=== PATIENT | male | born 1985 | race American Indian/Alaskan Native ===

== ENCOUNTER 2019-05-03 10:02 | Inpatient (IN) | payer OTHER ==
[2019-05-03] MEDS ORDERED: ONDANSETRON 4 MG/2 ML INJ IV ONE (11:01)
[2019-05-03] MEDS ORDERED: PANTOPRAZOLE 40 MG INJ IV ONE (11:01)
[2019-05-03] MEDS ORDERED: MORPHINE 4 MG/1 ML INJ IV ONE (11:01)
[2019-05-03] MEDS ORDERED: SODIUM CHLORIDE 0.9% 1000 ML 1,000 ML IV ONE ×2 (11:01→14:49)
--- NOTE | 2019-05-03 11:05 | Emergency Department Report ---
ED Abdominal Pain HPI - General Chief Complaint: Abdominal Pain Stated Complaint: ABD PAIN Time Seen by Provider: 05/03/19 10:57 Source: patient Mode of arrival: Ambulatory Limitations: No Limitations - History of Present Illness Initial Comments: Patient is 34 years old male with no significant past medical history. Patient presented to the ER complaining of abdominal pain, nausea and vomiting for the last 2 days. Patient described his pain as sharp increase with movement and eating. Patient stated that he is unable to keep anything down for the last 2-3 days. Patient denied any fever or chills. No diarrhea. Patient labs reviewed and showed elevated lipase. Patient admitted to drinking alcohol recently. CT abdomen and pelvis showed acute pancreatitis. I discussed the patient is Dr. Garcia, he agreed to admit the patient to medical service for further management. MD Complaint: abdominal pain -: days(s) (3) Location: epigastric Radiation: none Migration to: no migration Severity scale (0 -10): 5 Quality: sharp - Related Data Allergies Allergy/AdvReac Type Severity Reaction Status Date / Time No Known Allergies Allergy Unverified 08/04/14 09:52 ED Review of Systems ROS: Stated complaint: ABD PAIN Other details as noted in HPI Comment: All other systems reviewed and negative Constitutional: denies: chills, fever Respiratory: denies: cough, shortness of breath Cardiovascular: denies: chest pain Gastrointestinal: abdominal pain, nausea, vomiting. denies: diarrhea, constipation, hematemesis, hematochezia Musculoskeletal: denies: back pain Neurological: denies: headache, weakness, numbness, paresthesias, confusion ED Past Medical Hx - Past Medical History Previous Medical History?: Yes Additional medical history: Abd pain - Surgical History Past Surgical History?: Yes Additional Surgical History: Oral surgery - Social History Smoking Status: Current Every Day Smoker Substance Use Type: Marijuana ED Physical Exam - General Limitations: No Limitations General appearance: alert, in no apparent distress - Head Head exam: Present: atraumatic, normocephalic, normal inspection - Eye Eye exam: Present: normal appearance - ENT ENT exam: Present: mucous membranes dry - Neck Neck exam: Present: normal inspection, full ROM. Absent: tenderness, meningismus, lymphadenopathy, thyromegaly - Respiratory Respiratory exam: Present: normal lung sounds bilaterally - Cardiovascular Cardiovascular Exam: Present: regular rate, normal rhythm, normal heart sounds - GI/Abdominal GI/Abdominal exam: Present: soft, tenderness (epigastric tenderness), normal bowel sounds. Absent: distended, guarding, rebound, rigid, organomegaly, mass, bruit, pulsatile mass, hernia - Extremities Exam Extremities exam: Present: normal inspection, full ROM, normal capillary refill. Absent: tenderness, pedal edema, calf tenderness - Back Exam Back exam: Present: normal inspection, full ROM. Absent: CVA tenderness (R), CVA tenderness (L), muscle spasm, paraspinal tenderness, vertebral tenderness - Neurological Exam Neurological exam: Present: alert, oriented X3, CN II-XII intact, normal gait - Psychiatric Psychiatric exam: Present: normal mood - Skin Skin exam: Present: warm, intact, normal color ED Course Vital Signs 05/03/19 05/03/19 05/03/19 10:06 11:15 11:25 Temperature 98.2 F Pulse Rate 67 Respiratory 16 19 19 Rate Blood Pressure 124/85 O2 Sat by Pulse 98 Oximetry 05/03/19 14:05 Temperature 98.1 F Pulse Rate 76 Respiratory 15 Rate Blood Pressure 130/92 O2 Sat by Pulse 98 Oximetry ED Medical Decision Making - Lab Data Result diagrams: 05/03/19 12:17 05/03/19 12:17 - Radiology Data Radiology results: report reviewed Referring Physician: REMI ALY Patient Name: GILBERT LANZA Date of : 1985 Sex: Male Report Date: 2019-05-03 Report Status: [place] [address] Cat Scan Report Signed Patient: GILBERT LANZA MR#: [id number] : 1985 Acct:[id number] Age/Sex: 34 / M ADM Date: 05/03/19 Loc: ED Attending Dr: Ordering Physician: REMI ALY Date of Service: 05/03/19 Procedure(s): CT abdomen pelvis w con Accession Number(s): [id number] cc: REMI ALY CT ABDOMEN AND PELVIS WITH CONTRAST INDICATION: Central abdominal pain for one week. COMPARISON: No relevant prior imaging study available. TECHNIQUE: Axial, coronal and sagittal CT imaging of the abdomen and pelvis was performed after injection of 100 mL Omnipaque [address] scans at this location are performed using CT dose reduction for ALARA by means of automated exposure control. FINDINGS: LOWER CHEST: No significant abnormality. LIVER: A tiny cyst is seen anteriorly along the lateral segment of the left hepatic lobe. No additional significant abnormality is seen. BILIARY: No significant abnormality. PANCREAS: The pancreatic head and uncinate process are edematous. There is generalized peripancreatic edema. No other significant abnormality is seen. SPLEEN: No significant abnormality. ADRENALS: No significant abnormality. KIDNEYS AND URETERS: No significant abnormality. GI TRACT: No significant abnormality of the stomach is seen. There is mild thick ening of the proximal duodenum, likely due to the above described pancreatic inflammatory process. No other significant abnormality of the small bowel is seen. Significant abnormality is seen along the colon. The appendix is unremarkable. PERITONEUM: Inflammation tracks along the mesentery and the right paracolic gutter. There is a small amount of free fluid along the pelvis. No free air or fluid collection is seen. LYMPH NODES: No significant adenopathy. VASCULATURE: No significant abnormality. URINARY BLADDER: No significant abnormality. REPRODUCTIVE ORGANS: No significant abnormality. ADDITIONAL FINDINGS: None. SKELETAL SYSTEM: No significant abnormality. IMPRESSION: 1. Uncomplicated acute pancreatitis. 2. Additional findings as above. Signer Name: Basil Zhu MD Signed: 05/03/2019 2:14 PM Workstation Name: [id number] Transcribed By: JOSLYN Dictated By: Basil Zhu MD Electronically Authenticated By: Basil Zhu MD Signed Date/Time: 05/03/19 1414 DD/ 09 TD/TT: Critical care attestation.: If time is entered above; I have spent that time in minutes in the direct care of this critically ill patient, excluding procedure time. ED Disposition Clinical Impression: Abdominal pain, Acute pancreatitis Disposition: OP ADMIT IP TO THIS HOSP Is pt being admited?: Yes Condition: Stable
[2019-05-03 12:22] LABS: Basophils % (Auto) 0.2 % (0.0-1.8); Eosinophils # (Auto) 0.1 K/mm3 (0.0-0.4); Eosinophils % (Auto) 1.1 % (0.0-4.3); Hemoglobin 14.5 gm/dl (11.8-15.2); Lymphocytes # (Auto) 0.9 K/mm3 (1.2-5.4); Lymphocytes % (Auto) 10.6 % (13.4-35.0); Mean Corpuscular HGB Conc 33 % (32-34); Mean Corpuscular Volume 91 fl (84-94); Monocytes # (Auto) 0.8 K/mm3 (0.0-0.8); Monocytes % (Auto) 8.6 % (0.0-7.3); Platelet Count 185 K/mm3 (140-440); Red Blood Count 4.83 M/mm3 (3.65-5.03)
[2019-05-03 12:45] LABS: Alanine Aminotransferase 28 units/L (7-56); Albumin 4.4 g/dL (3.9-5); BUN/Creatinine Ratio 8; Bilirubin,Direct 0.3 mg/dL (0-0.2); Blood Urea Nitrogen 6 mg/dL (9-20); Calcium 9.8 mg/dL (8.4-10.2); Hemolysis Index 25
[2019-05-03 13:05] LABS: Bilirubin,Urine NEG (Negative); Blood,Urine NEG (Negative); Color,Urine Straw (Yellow); Protein,Urine <15 mg/dL mg/dL (Negative); Urobilinogen,Urine < 2.0 mg/dL (<2.0)
[2019-05-03] MEDS ORDERED: MORPHINE 2 MG/1 ML INJ IV ONE (13:38)
--- NOTE | 2019-05-03 14:19 | Cat Scan Report ---
CT ABDOMEN AND PELVIS WITH CONTRAST INDICATION: Central abdominal pain for one week. COMPARISON: No relevant prior imaging study available. TECHNIQUE: Axial, coronal and sagittal CT imaging of the abdomen and pelvis was performed after inje ction of 100 mL Omnipaque [address] scans at this location are performed using CT dose re duction for ALARA by means of automated exposure control. FINDINGS: LOWER CHEST: No significant abnormality. LIVER: A tiny cyst is seen anteriorly along the lateral segment of the left hepatic lobe. No addition al significant abnormality is seen. BILIARY: No significant abnormality. PANCREAS: The pancreatic head and uncinate process are edematous. There is generalized peripancreatic edema. No other significant abnormality is seen. SPLEEN: No significant abnormality. ADRENALS: No significant abnormality. KIDNEYS AND URETERS: No significant abnormality. GI TRACT: No significant abnormality of the stomach is seen. There is mild thickening of the proximal duodenum, likely due to the above described pancreatic inflammatory process. No other significant ab normality of the small bowel is seen. Significant abnormality is seen along the colon. The appendix i s unremarkable. PERITONEUM: Inflammation tracks along the mesentery and the right paracolic gutter. There is a small amount of free fluid along the pelvis. No free air or fluid collection is seen. LYMPH NODES: No significant adenopathy. VASCULATURE: No significant abnormality. URINARY BLADDER: No significant abnormality. REPRODUCTIVE ORGANS: No significant abnormality. ADDITIONAL FINDINGS: None. SKELETAL SYSTEM: No significant abnormality. IMPRESSION: 1. Uncomplicated acute pancreatitis. 2. Additional findings as above. Signer Name: Basil Zhu MD Signed: 05/03/2019 2:14 PM Workstation Name: [id number]
--- NOTE | 2019-05-03 17:02 | History and Physical Report ---
History of Present Illness Date of examination: 05/03/19 Date of admission: 05/03/19 14:38 Chief complaint: Abd pain 2 days History of present illness: Patient is 34 years old male with no significant past medical history. Patient presented to the ER complaining of abdominal pain, nausea and vomiting for the last 2 days. Patient described his pain as sharp increase with movement and eating. Patient stated that he is unable to keep anything down for the last 2-3 days. Patient denied any fever or chills. No diarrhea. Patient labs reviewed and showed elevated lipase. Patient admitted to drinking alcohol recently. Past Medical History Previous Medical History?: Yes Additional medical history: Abd pain Surgical History Past Surgical History?: Yes Additional Surgical History: Oral surgery Social History Smoking Status: Current Every Day Smoker Substance Use Type: Marijuana Review of Systems ROS: Stated complaint: ABD PAIN Other details as noted in HPI Comment: All other systems reviewed and negative Constitutional: denies: chills, fever Respiratory: denies: cough, shortness of breath Cardiovascular: denies: chest pain Gastrointestinal: abdominal pain, nausea, vomiting. denies: diarrhea, constipation, hematemesis, hematochezia Musculoskeletal: denies: back pain Neurological: denies: headache, weakness, numbness, paresthesias, confusion Medications and Allergies Allergies Allergy/AdvReac Type Severity Reaction Status Date / Time No Known Allergies Allergy Unverified 08/04/14 09:52 Home Medications Medication Instructions Recorded Confirmed Last Taken Type No Known Home Medications [No 05/03/19 05/03/19 Unknown History Reported Home Medications] Active Meds: Active Medications Sodium Chloride (Nacl 0.9% 1000 Ml) 1,000 mls @ 250 mls/hr IV ONCE ONE Stop: 05/03/19 18:48 Last Admin: 05/03/19 15:09 Dose: 250 mls/hr Documented by: Exam - Constitutional Vitals: Temp Pulse Resp BP Pulse Ox 98.4 F 74 12 130/80 98 05/03/19 16:42 05/03/19 16:42 05/03/19 16:42 05/03/19 16:42 05/03/19 16:42 General appearance: Present: no acute distress, well-nourished - EENT Eyes: Present: PERRL ENT: hearing intact, clear oral mucosa - Neck Neck: Present: supple, normal ROM - Respiratory Respiratory effort: normal Respiratory: bilateral: CTA - Cardiovascular Heart rate: 78 Rhythm: regular Heart Sounds: Present: S1 & S2. Absent: rub, click - Extremities Extremities: no ischemia, pulses intact, pulses symmetrical, No edema Peripheral Pulses: within normal limits - Abdominal General gastrointestinal: Present: soft, tender, non-distended, normal bowel sounds Localized gastrointestinal: tender: diffuse, epigastric periumbilical Male genitourinary: Present: normal - Integumentary Integumentary: Present: clear, warm, dry - Musculoskeletal Musculoskeletal: gait normal, strength equal bilaterally - Psychiatric Psychiatric: appropriate mood/affect, intact judgment & insight - Neurologic Neurologic: CNII-XII intact, moves all extremities - Allied Health Allied health notes reviewed: nursing, case management Results - Labs CBC & Chem 7: 05/04/19 04:34 05/04/19 04:34 Labs: Laboratory Last Values WBC 8.7 K/mm3 (4.5-11.0) 05/03/19 12:17 RBC 4.83 M/mm3 (3.65-5.03) 05/03/19 12:17 Hgb 14.5 gm/dl (11.8-15.2) 05/03/19 12:17 Hct 44.0 % (35.5-45.6) 05/03/19 12:17 MCV 91 fl (84-94) 05/03/19 12:17 MCH 30 pg (28-32) 05/03/19 12:17 MCHC 33 % (32-34) 05/03/19 12:17 RDW 13.0 % (13.2-15.2) L 05/03/19 12:17 Plt Count 185 K/mm3 (140-440) 05/03/19 12:17 Lymph % (Auto) 10.6 % (13.4-35.0) L 05/03/19 12:17 [place] % (Auto) 8.6 % (0.0-7.3) H 05/03/19 12:17 Eos % (Auto) 1.1 % (0.0-4.3) 05/03/19 12:17 Baso % (Auto) 0.2 % (0.0-1.8) 05/03/19 12:17 Lymph # 0.9 K/mm3 (1.2-5.4) L 05/03/19 12:17 [place] # 0.8 K/mm3 (0.0-0.8) 05/03/19 12:17 Eos # 0.1 K/mm3 (0.0-0.4) 05/03/19 12:17 Baso # 0.0 K/mm3 (0.0-0.1) 05/03/19 12:17 Seg Neutrophils % 79.5 % (40.0-70.0) H 05/03/19 12:17 Seg Neutrophils # 6.9 K/mm3 (1.8-7.7) 05/03/19 12:17 Sodium 134 mmol/L (137-145) L 05/03/19 12:17 Potassium 3.3 mmol/L (3.6-5.0) L 05/03/19 12:17 Chloride 95.6 mmol/L (98-107) L 05/03/19 12:17 Carbon Dioxide 18 mmol/L (22-30) L 05/03/19 12:17 Anion Gap 24 mmol/L 05/03/19 12:17 BUN 6 mg/dL (9-20) L 05/03/19 12:17 Creatinine 0.8 mg/dL (0.8-1.5) 05/03/19 12:17 Estimated GFR > 60 ml/min 05/03/19 12:17 BUN/Creatinine Ratio 8 % 05/03/19 12:17 Glucose 90 mg/dL (75-100) 05/03/19 12:17 Calcium 9.8 mg/dL (8.4-10.2) 05/03/19 12:17 Total Bilirubin 1.30 mg/dL (0.1-1.2) H 05/03/19 12:17 Direct Bilirubin 0.3 mg/dL (0-0.2) H 05/03/19 12:17 Indirect Bilirubin 1.0 mg/dL 05/03/19 12:17 AST 34 units/L (5-40) 05/03/19 12:17 ALT 28 units/L (7-56) 05/03/19 12:17 Alkaline Phosphatase 76 units/L (35-129) 05/03/19 12:17 Total Protein 7.8 g/dL (6.3-8.2) 05/03/19 12:17 Albumin 4.4 g/dL (3.9-5) 05/03/19 12:17 Albumin/Globulin Ratio 1.3 % 05/03/19 12:17 Amylase 443 units/L (27-131) H 05/03/19 12:17 Lipase 825 units/L (13-60) H 05/03/19 12:17 Urine Color Straw (Yellow) 05/03/19 12:21 Urine Turbidity Clear (Clear) 05/03/19 12:21 Urine pH 7.0 (5.0-7.0) 05/03/19 12:21 Ur Specific [place] 1.005 (1.003-1.030) 05/03/19 12:21 Urine Protein <15 mg/dl mg/dL (Negative) 05/03/19 12:21 Urine Glucose (UA) Neg mg/dL (Negative) 05/03/19 12:21 Urine Ketones 20 mg/dL (Negative) 05/03/19 12:21 Urine Blood Neg (Negative) 05/03/19 12:21 Urine Nitrite Neg (Negative) 05/03/19 12:21 Urine Bilirubin Neg (Negative) 05/03/19 12:21 Urine Urobilinogen < 2.0 mg/dL (<2.0) 05/03/19 12:21 Ur Leukocyte Esterase Sm (Negative) 05/03/19 12:21 Urine WBC (Auto) 2.0 /HPF (0.0-6.0) 05/03/19 12:21 Urine RBC (Auto) 1.0 /HPF (0.0-6.0) 05/03/19 12:21 - Imaging and Cardiology CT scan - abdomen: report reviewed (Acute pancreatitis) Assessment and Plan Advance Directives: Yes (Full code) VTE prophylaxis?: Chemical Plan of care discussed with patient/family: Yes - Patient Problems (1) Acute pancreatitis Current Visit: Yes Status: Acute Qualifiers: Pancreatitis type: alcohol induced Plan to address problem: Keep NPO IV Fluids Pain Management (2) EtOH dependence Current Visit: Yes Status: Chronic Qualifiers: Substance use status: uncomplicated Qualified Code(s): F10.20 - Alcohol dependence, uncomplicated Plan to address problem: CIWA protocol (3) Hypokalemia Current Visit: Yes Status: Acute Plan to address problem: Supplemented (4) DVT prophylaxis Current Visit: Yes Status: Acute Plan to address problem: On Heparin
[2019-05-03] MEDS ORDERED: ACETAMINOPHEN 325 MG TAB PO PRN (17:05)
[2019-05-03] MEDS ORDERED: METOCLOPRAMIDE 10 MG/2 ML INJ IV PRN (17:05)
[2019-05-03] MEDS: HYDROmorphone 1 MG/1 ML INJ IV PRN ×4 (17:20→23:45)
[2019-05-03] MEDS: D5W/0.9% NACL 1,000 ML IV SCH (18:52)
[2019-05-03] MEDS: POTASSIUM CHLORIDE 10 MEQ 10 MEQ/100 ML BAG IV SCH ×4 (20:10→23:47)
[2019-05-03] MEDS: FAMOTIDINE 20 MG/2 ML INJ IV SCH (21:27)
[2019-05-04] MEDS: HYDROmorphone 1 MG/1 ML INJ IV PRN ×4 (04:42→17:59)
[2019-05-04 05:06] LABS: Basophils % (Auto) 0.1 % (0.0-1.8); Eosinophils % (Auto) 0.5 % (0.0-4.3); Hematocrit 40.6 % (35.5-45.6); Hemoglobin 13.3 gm/dl (11.8-15.2); Lymphocytes # (Auto) 0.4 K/mm3 (1.2-5.4); Lymphocytes % (Auto) 5.5 % (13.4-35.0); Mean Corpuscular HGB Conc 33 % (32-34); Mean Corpuscular Volume 92 fl (84-94); Monocytes # (Auto) 0.5 K/mm3 (0.0-0.8); Monocytes % (Auto) 7.4 % (0.0-7.3); Platelet Count 170 K/mm3 (140-440); Red Cell Distribution Width 13.3 % (13.2-15.2)
[2019-05-04 05:37] LABS: Alanine Aminotransferase 21 units/L (7-56); Albumin 3.8 g/dL (3.9-5); BUN/Creatinine Ratio 6; Blood Urea Nitrogen 5 mg/dL (9-20); Calcium 9.1 mg/dL (8.4-10.2); Hemolysis Index 2
[2019-05-04] MEDS ORDERED: chlordiazePOXIDE 25 MG CAP PO PRN (07:37)
[2019-05-04] MEDS ORDERED: LORazepam 2 MG/ML VIAL IV PRN ×2 (07:37)
[2019-05-04] MEDS: D5W/0.9% NACL 1,000 ML IV SCH ×4 (08:46→21:45)
[2019-05-04] MEDS: FAMOTIDINE 20 MG/2 ML INJ IV SCH ×2 (12:02→21:41)
--- NOTE | 2019-05-04 14:23 | Progress Note ---
Assessment and Plan / Acute pancreatitis start clear liquid cont IV Fluids, trend lipase Pain Management / EtOH dependence CIWA protocol initiated, counselled for cessation / Hypokalemia, Supplemented /DVT prophylaxis On Heparin Subjective Date of service: 05/04/19 Interval history: Pt seen and examined c/o abdominal pain, N/V - but better today Objective - Constitutional General appearance: Present: mild distress - EENT Eyes: PERRL, EOM intact ENT: hearing intact, clear oral mucosa Ears: bilateral: normal - Neck Neck: supple, normal ROM - Respiratory Respiratory effort: normal Respiratory: bilateral: CTA - Cardiovascular Rhythm: regular Heart Sounds: Present: S1 & S2. Absent: gallop, rub Extremities: pulses intact, No edema, normal color, Full ROM - Gastrointestinal General gastrointestinal: Present: soft, tender (epigastric), non-distended, normal bowel sounds - Integumentary Integumentary: clear, warm, dry - Musculoskeletal Musculoskeletal: 1, strength equal bilaterally - Neurologic Neurologic: moves all extremities - Psychiatric Psychiatric: memory intact, appropriate mood/affect, intact judgment & insight - Labs CBC & Chem 7: 05/04/19 04:34 05/04/19 04:34 Labs: Abnormal lab results 05/04/19 05/04/19 05/04/19 Range/Units 04:34 04:34 04:34 Lymph % (Auto) 5.5 L (13.4-35.0) % [place] % (Auto) 7.4 H (0.0-7.3) % Lymph # 0.4 L (1.2-5.4) K/mm3 Seg Neutrophils % 86.5 H (40.0-70.0) % BUN 5 L (9-20) mg/dL Glucose 114 H (75-100) mg/dL Albumin 3.8 L (3.9-5) g/dL Lipase 1787 H (13-60) units/L - Imaging and cardiology CT scan - abdomen: report reviewed (uncomplicated acute appendicitis)
[2019-05-05] MEDS: HYDROmorphone 1 MG/1 ML INJ IV PRN ×5 (01:58→18:11)
[2019-05-05] MEDS: D5W/0.9% NACL 1,000 ML IV SCH ×3 (05:48→21:14)
[2019-05-05] MEDS: FAMOTIDINE 20 MG/2 ML INJ IV SCH ×2 (09:07→22:10)
--- NOTE | 2019-05-05 12:28 | Progress Note ---
Assessment and Plan Assessment and plan: Acute pancreatitis Was on clear liquid, will advance to full liquid diet since lipase improved, less abd pain cont IV Fluids, trend lipase Pain Management EtOH dependence CIWA protocol initiated, counselled for cessation Hypokalemia, Supplemented DVT prophylaxis On Heparin Full code status History Interval history: Less abdominal pain Tolerating clear liquid diet Hospitalist Physical - Physical exam Narrative exam: Gen: Not in acute distress, lying in bed HEENT: Normocephalic, atraumatic Neck: supple, no JVD Heart: S1 and S2 reg, no murmurs, rubs or gallop Lungs: Clear to auscultation bilaterally, Abd: soft, mild tender, no rebound tenderness, non distended, normal BS, Ext: No edema, no clubbing, no cyanosis Neuro: Awake, alert, oriented X 3, - Constitutional Vitals: Temp Pulse Resp BP Pulse Ox 98.4 F 91 H 17 113/80 96 05/05/19 06:04 05/05/19 06:04 05/05/19 06:04 05/05/19 06:04 05/05/19 06:04 General appearance: Present: mild distress Results - Labs CBC & Chem 7: 05/04/19 04:34 05/04/19 04:34 Labs: Laboratory Last Values WBC 6.9 K/mm3 (4.5-11.0) 05/04/19 04:34 RBC 4.40 M/mm3 (3.65-5.03) 05/04/19 04:34 Hgb 13.3 gm/dl (11.8-15.2) 05/04/19 04:34 Hct 40.6 % (35.5-45.6) 05/04/19 04:34 MCV 92 fl (84-94) 05/04/19 04:34 MCH 30 pg (28-32) 05/04/19 04:34 MCHC 33 % (32-34) 05/04/19 04:34 RDW 13.3 % (13.2-15.2) 05/04/19 04:34 Plt Count 170 K/mm3 (140-440) 05/04/19 04:34 Lymph % (Auto) 5.5 % (13.4-35.0) L 05/04/19 04:34 [place] % (Auto) 7.4 % (0.0-7.3) H 05/04/19 04:34 Eos % (Auto) 0.5 % (0.0-4.3) 05/04/19 04:34 Baso % (Auto) 0.1 % (0.0-1.8) 05/04/19 04:34 Lymph # 0.4 K/mm3 (1.2-5.4) L 05/04/19 04:34 [place] # 0.5 K/mm3 (0.0-0.8) 05/04/19 04:34 Eos # 0.0 K/mm3 (0.0-0.4) 05/04/19 04:34 Baso # 0.0 K/mm3 (0.0-0.1) 05/04/19 04:34 Seg Neutrophils % 86.5 % (40.0-70.0) H 05/04/19 04:34 Seg Neutrophils # 6.0 K/mm3 (1.8-7.7) 05/04/19 04:34 Sodium 140 mmol/L (137-145) 05/04/19 04:34 Potassium 3.9 mmol/L (3.6-5.0) 05/04/19 04:34 Chloride 103.6 mmol/L (98-107) 05/04/19 04:34 Carbon Dioxide 23 mmol/L (22-30) 05/04/19 04:34 Anion Gap 17 mmol/L 05/04/19 04:34 BUN 5 mg/dL (9-20) L 05/04/19 04:34 Creatinine 0.9 mg/dL (0.8-1.5) 05/04/19 04:34 Estimated GFR > 60 ml/min 05/04/19 04:34 BUN/Creatinine Ratio 6 % 05/04/19 04:34 Glucose 114 mg/dL (75-100) H 05/04/19 04:34 Hemoglobin A1c 4.7 % (4-6) 05/03/19 12:17 Calcium 9.1 mg/dL (8.4-10.2) 05/04/19 04:34 Total Bilirubin 0.90 mg/dL (0.1-1.2) 05/04/19 04:34 Direct Bilirubin 0.3 mg/dL (0-0.2) H 05/03/19 12:17 Indirect Bilirubin 1.0 mg/dL 05/03/19 12:17 AST 23 units/L (5-40) 05/04/19 04:34 ALT 21 units/L (7-56) 05/04/19 04:34 Alkaline Phosphatase 59 units/L (35-129) 05/04/19 04:34 Total Protein 6.9 g/dL (6.3-8.2) 05/04/19 04:34 Albumin 3.8 g/dL (3.9-5) L 05/04/19 04:34 Albumin/Globulin Ratio 1.2 % 05/04/19 04:34 Amylase 443 units/L (27-131) H 05/03/19 12:17 Lipase 695 units/L (13-60) H 05/05/19 07:06 Urine Color Straw (Yellow) 05/03/19 12:21 Urine Turbidity Clear (Clear) 05/03/19 12:21 Urine pH 7.0 (5.0-7.0) 05/03/19 12:21 Ur Specific [place] 1.005 (1.003-1.030) 05/03/19 12:21 Urine Protein <15 mg/dl mg/dL (Negative) 05/03/19 12:21 Urine Glucose (UA) Neg mg/dL (Negative) 05/03/19 12:21 Urine Ketones 20 mg/dL (Negative) 05/03/19 12:21 Urine Blood Neg (Negative) 05/03/19 12:21 Urine Nitrite Neg (Negative) 05/03/19 12:21 Urine Bilirubin Neg (Negative) 05/03/19 12:21 Urine Urobilinogen < 2.0 mg/dL (<2.0) 05/03/19 12:21 Ur Leukocyte Esterase Sm (Negative) 05/03/19 12:21 Urine WBC (Auto) 2.0 /HPF (0.0-6.0) 05/03/19 12:21 Urine RBC (Auto) 1.0 /HPF (0.0-6.0) 05/03/19 12:21 Active Medications - Current Medications Current Medications: Generic Name Dose Route Start Last Admin Trade Name Freq PRN Reason Stop Dose Admin Acetaminophen 650 mg 05/03/19 17:05 Tylenol PO Q4H PRN Pain MILD(1-3)/Fever >100.5/CHAUDHRY Chlordiazepoxide HCl 50 mg 05/04/19 07:37 Librium PO Q1H PRN CIWA-Ar 8-15 Famotidine 20 mg 05/03/19 22:00 05/05/19 09:07 Pepcid IV 20 mg BID KARAN Administration Hydromorphone HCl 1 mg 05/03/19 17:05 05/05/19 09:03 Dilaudid IV 1 mg Q2H PRN Administration Pain , Severe (7-10) Dextrose/Sodium Chloride 1,000 mls @ 125 mls/hr 05/03/19 18:00 05/05/19 05:48 D5ns IV 100 mls/hr DIRECT KARAN Administration Lorazepam 2 mg 05/04/19 07:37 Ativan IV Q1H PRN CIWA-Ar 8-15 Lorazepam 4 mg 05/04/19 07:37 Ativan IV Q1H PRN CIWA-Ar 16-25 Metoclopramide HCl 10 mg 05/03/19 17:05 Reglan IV Q6H PRN Nausea And Vomiting Ondansetron HCl 4 mg 05/03/19 17:05 Zofran IV Q3H PRN Nausea And Vomiting Sodium Chloride 10 ml 05/03/19 22:00 05/05/19 09:15 Sodium Chloride Flush Syringe 10 Ml IV 10 ml BID KARAN Administration Sodium Chloride 10 ml 05/03/19 17:05 Sodium Chloride Flush Syringe 10 Ml IV PRN PRN LINE FLUSH
[2019-05-05] MEDS: ONDANSETRON 4 MG/2 ML INJ IV PRN ×2 (12:47→20:01)
--- NOTE | 2019-05-06 02:22 | Cat Scan Report ---
Examination: CT of the head without contrast Clinical information: Altered mental status. Comparison: None Technical: Multiple axial CT images of the head were obtained without intravenous contrast. Sagittal and coronal reformats were obtained. All CTs at this facility utilize dose reduction techniques inc luding automated exposure control, iterative reconstruction and weight based dosing when appropriate to reduce patient radiation dose to as low as reasonable achievable. Findings: There is no CT evidence of acute intracranial hemorrhage or large territorial infarct. The ventricular system is normal in size. There are no extra-axial fluid collections. Evaluation of the calvarium demonstrates no evidence of acute bony abnormality. The paranasal sinuses and mastoid air cells are clear. Impression: 1. No CT evidence of acute intracranial process. Signer Name: Stacie Villafana MD Signed: 05/06/2019 2:17 AM Workstation Name: [id number]
[2019-05-06] MEDS: D5W/0.9% NACL 1,000 ML IV SCH (05:29)
[2019-05-06] MEDS: FAMOTIDINE 20 MG/2 ML INJ IV SCH (10:16)
--- NOTE | 2019-05-06 15:33 | Discharge Summary ---
Providers - Providers Date of Admission: 05/03/19 14:38 Date of discharge: 05/06/19 Attending physician: RADHA CHOE 05/03/19 Consult to Case Management [CONS] Routine Services Needed at Discharge: Other Notified:: copy left for CM Primary care physician: ROLL FORMER Hospitalization Condition: Fair Hospital course: Patient is 34 years old male with no significant past medical history. Patient presented to the ER complaining of abdominal pain, nausea and vomiting for 2 days. Patient described his pain as sharp increase with movement and eating. Patient stated that he is unable to keep anything down for the last 2-3 days. Patient denied any fever or chills. No diarrhea. Patient labs reviewed and showed elevated lipase. Patient admitted to drinking alcohol recently. Acute pancreatitis: Was on clear liquid, advanced to full liquid diet, then soft diet, which he tolerated. Also managed with IV Fluids, narcotics for pain Management Alcohol dependence,CIWA protocol initiated, counselled for cessation Hypokalemia, Supplemented DVT prophylaxis He improved and was discharged home after 3 days on 05/06 Total time spent on discharge, 32 mins Disposition: DC-01 TO HOME OR SELFCARE - Discharge Diagnoses (1) Alcohol dependence Status: Acute (2) Acute pancreatitis Status: Acute Qualifiers: Pancreatitis type: alcohol induced (3) Hypokalemia Status: Acute Core Measure Documentation - Palliative Care Palliative Care/ Comfort Measures: Not Applicable - Core Measures Any of the following diagnoses?: none Exam - Constitutional Vitals: Temp Pulse Resp BP Pulse Ox 98.5 F 100 H 18 122/80 99 05/06/19 11:34 05/06/19 11:34 05/06/19 11:34 05/06/19 11:34 05/06/19 11:34 Plan Activity: no restrictions Diet: regular Plan of Treatment: 1.Follow up with PCP or [facility] in 1 week. 2.Avoid alcohol Follow up with: PRIMARY CARE, [Primary Care Provider] - 7 Days Prescriptions: HYDROcodone/APAP 5-325 [[place] 5/325] 1 each PO Q6HR PRN #10 tablet PRN Reason: Pain
[2019-05-06 16:40] VITALS: BP 121/90
== END 2019-05-06 17:42 | disposition home or self-care (01) | DRG 440 ==
LOC: ED 10:02 → 3A 14:38
PROVIDERS: ADMIT Internal Medicine; ATTEND Internal Medicine
DX: K85.20 Alcohol induced acute pancreatitis without necrosis or infection (principal); R07.9 Chest pain, unspecified; F17.210 Nicotine dependence, cigarettes, uncomplicated; E87.6 Hypokalemia; F10.20 Alcohol dependence, uncomplicated
CPT/HCPCS: 36415; 70450; 74177; 80048; 80053; 80076; 81001; 82150; 83036; 83690; 85025; 99406; G0378; C9113; J1170; J2060; J2270; J2405; J2765; J3480; J7030; J7042; Q9967

== ENCOUNTER 2020-02-04 13:37 | Emergency (ER) | payer SELFPAY ==
[2020-02-04 14:26] VITALS: BP 120/81
--- NOTE | 2020-02-04 14:31 | Emergency Department Report ---
ED Upper Extremity Inj HPI - General Chief Complaint: Extremity Injury, Upper Stated Complaint: ARM PAIN Time Seen by Provider: 02/04/20 14:25 Source: patient Mode of arrival: Ambulatory Limitations: No Limitations - History of Present Illness Initial Comments: This is a 34-year-old male nontoxic, well nourished in appearance, no acute signs of distress presents to the ED with c/o of left shoulder pain x 2 days. Patient stated he was heavy lifting and started to have pains and now has some radiation to left upper hand. Patient denies any new trauma. Stated has some decreased ROM due to pain but denies joint swelling, redness, or abnormal gait. Denies any fever, chills, nausea, vomiting, headache, stiff neck, chest pain or shortness of breath. Patient denies any numbness or tingling. Denies any allergies. MD Complaint: Injury to:: left, shoulder -: days(s) (2) Other Extremity Injury: Shoulder: Left Other Injuries: none Place: home Severity scale (0 -10): 8 Improves With: immobilization Worsens With: movement of extremity Associated Symptoms: denies other symptoms. denies: weakness, numbness, neck pain, suspects foreign body, nausea/vomiting, heard/felt popping sensat - Related Data Previous Rx's Medication Instructions Recorded Last Taken Type HYDROcodone/APAP 5-325 [[place] 1 each PO Q6HR PRN #10 tablet 05/06/19 Unknown Rx 5/325] RX: Naproxen 500 mg PO Q12H PRN #12 tablet 02/04/20 Unknown Rx Allergies Allergy/AdvReac Type Severity Reaction Status Date / Time No Known Allergies Allergy Unverified 02/04/20 14:27 ED Review of Systems ROS: Stated complaint: ARM PAIN Other details as noted in HPI Constitutional: denies: chills, fever Eyes: denies: eye pain, eye discharge, vision change ENT: denies: ear pain, throat pain Respiratory: denies: cough, shortness of breath, wheezing Cardiovascular: denies: chest pain, palpitations Endocrine: no symptoms reported Gastrointestinal: denies: abdominal pain, nausea, diarrhea Genitourinary: denies: urgency, dysuria Musculoskeletal: denies: back pain, joint swelling, arthralgia Skin: denies: rash, lesions Neurological: denies: headache, weakness, paresthesias Psychiatric: denies: anxiety, depression Hematological/Lymphatic: denies: easy bleeding, easy bruising ED Past Medical Hx - Past Medical History Previous Medical History?: No Additional medical history: Abd pain - Surgical History Past Surgical History?: No Additional Surgical History: Oral surgery - Social History Smoking Status: Current Every Day Smoker Substance Use Type: Alcohol, Marijuana - Medications Home Medications: Home Medications Medication Instructions Recorded Confirmed Last Taken Type HYDROcodone/APAP 5-325 [[place] 1 each PO Q6HR PRN #10 tablet 05/06/19 Unknown Rx 5/325] RX: Naproxen 500 mg PO Q12H PRN #12 tablet 02/04/20 Unknown Rx ED Physical Exam - General Limitations: No Limitations General appearance: alert, in no apparent distress - Head Head exam: Present: atraumatic, normocephalic - Neck Neck exam: Present: normal inspection, full ROM. Absent: tenderness, meningismus, lymphadenopathy - Respiratory Respiratory exam: Present: normal lung sounds bilaterally. Absent: respiratory distress, wheezes, rales, rhonchi, stridor, chest wall tenderness, accessory muscle use, decreased breath sounds, prolonged expiratory - Cardiovascular Cardiovascular Exam: Present: regular rate, normal rhythm, normal heart sounds. Absent: irregular rhythm, systolic murmur, diastolic murmur, rubs, gallop - Extremities Exam Extremities exam: Present: normal inspection, full ROM, tenderness, normal capillary refill. Absent: joint swelling - Expanded Upper Extremity Exam Left General: Present: normal inspection Shoulder Exam: Present: normal inspection, full ROM, tenderness. Absent: swelling, abrasion, laceration, ecchymosis, deformity, crepidus, dislocation, e rythema, tenderness over AC joint Upper Arm exam: Present: normal inspection, full ROM. Absent: tenderness, swelling Elbow exam: Present: normal inspection, full ROM. Absent: tenderness, swelling Forearm Wrist exam: Present: normal inspection, full ROM. Absent: tenderness, swelling Hand Wrist exam: Present: normal inspection, full ROM. Absent: tenderness, swelling Vascular: Present: vascular compromise, normal capillary refill - Back Exam Back exam: Present: normal inspection, full ROM. Absent: tenderness, CVA tenderness (R), CVA tenderness (L), muscle spasm, paraspinal tenderness, vertebral tenderness, rash noted - Neurological Exam Neurological exam: Present: alert, oriented X3, normal gait - Psychiatric Psychiatric exam: Present: normal affect, normal mood - Skin Skin exam: Present: warm, dry, intact, normal color. Absent: rash ED Course Vital Signs 02/04/20 14:23 Temperature 98.4 F Pulse Rate 94 H Respiratory 16 Rate Blood Pressure 120/81 [Left] O2 Sat by Pulse 100 Oximetry - Reevaluation(s) Reevaluation #1: 02/04/20 14:30 Patient is speaking in full sentences with no signs of distress noted. ED Medical Decision Making - Radiology Data Referring Physician: REGAN HOWARD Patient Name: GILBERT LANZA Date of : 1985 Sex: Male Report Date: 2020-02-04 Report Status: [place] [address] XRay Report Signed Patient: GILBERT LANZA MR#: [id number] : 1985 Acct:[id number] Age/Sex: 34 / M ADM Date: 02/04/20 Loc: ED Attending Dr: Ordering Physician: REGAN HOWARD NP Date of Service: 02/04/20 Procedure(s): XR shoulder 2+V LT Accession Number(s): [id number] cc: REGAN HOWARD NP Fluoro Time In Minutes: LEFT SHOULDER 3 VIEWS INDICATION / CLINICAL INFORMATION: left shoulder pain COMPARISON: None available. FINDINGS: BONES / JOINT(S): No acute fracture or subluxation. No significant arthritis. SOFT TISSUES: No significant abnormality. ADDITIONAL FINDINGS: None. Signer Name: Kaushik Sterling MD Signed: 02/04/2020 3:00 PM Workstation Name: [id number] Transcribed By: ES Dictated By: Kaushik Sterling MD Electronically Authenticated By: Kaushik Sterling MD Signed Date/Time: 02/04/20 1500 DD/ 1459 TD/TT: - Medical Decision Making This is a 34-year-old male that presents with left shoulder strain. Patient is stable and was examined by me. Patient is notified of the xray results with no questions noted. Instructed to see orthoipedic for MRI. Patient has a shoulder sling present with pt. Patient was instructed to Follow-up with a orthopedic doctor in 3-5 days or if symptoms worsen and continue return to emergency room as soon as possible. At time of discharge, the patient does not seem toxic or ill in appearance. No acute signs of distress noted. Patient agrees to dis charge treatment plan of care. No further questions noted by the patient. Critical care attestation.: If time is entered above; I have spent that time in minutes in the direct care of this critically ill patient, excluding procedure time. ED Disposition Clinical Impression: Left shoulder strain Qualifiers: Encounter type: initial encounter Qualified Code(s): S46.912A - Strain of unspecified muscle, fascia and tendon at shoulder and upper arm level, left arm, initial encounter Disposition: TO HOME OR SELFCARE Is pt being admited?: No Does the pt Need Aspirin: No Condition: Stable Instructions: RICE Therapy (ED) Additional Instructions: Follow-up with a orthopedic doctor in 3-5 days or if symptoms worsen and cont inue return to emergency room as soon as possible. No physical activity until cleared by orthopedic doctor. Prescriptions: RX: Naproxen 500 mg PO Q12H PRN #12 tablet PRN Reason: Pain , Severe (7-10) Referrals: PRIMARY CAREMD [Referring] - 3-5 Days DIANA AZEVEDO MD [Staff Physician] - 3-5 Days Forms: Work/School Release Form(ED)
--- NOTE | 2020-02-04 15:04 | XRay Report ---
LEFT SHOULDER 3 VIEWS INDICATION / CLINICAL INFORMATION: left shoulder pain COMPARISON: None available. FINDINGS: BONES / JOINT(S): No acute fracture or subluxation. No significant arthritis. SOFT TISSUES: No significant abnormality. ADDITIONAL FINDINGS: None. Signer Name: Kaushik Sterling MD Signed: 02/04/2020 3:00 PM Workstation Name: [id number]
== END 2020-02-04 15:58 | disposition home or self-care (01) ==
LOC: ED 13:37
DX: S46.912A Strain of unspecified muscle, fascia and tendon at shoulder and upper arm level, left arm, initial encounter (principal); F17.200 Nicotine dependence, unspecified, uncomplicated; F12.90 Cannabis use, unspecified, uncomplicated; Z79.899 Other long term (current) drug therapy; Z98.890 Other specified postprocedural states; X50.0XXA Overexertion from strenuous movement or load, initial encounter; Y93.89 Activity, other specified; Y92.89 Other specified places as the place of occurrence of the external cause; Y99.8 Other external cause status
CPT/HCPCS: 99283